=== PATIENT | female | born 1935 | race Caucasian/White ===

== ENCOUNTER 2018-03-08 03:23 | Observation (INO) ==
[2018-03-08 03:40] VITALS: BMI 22.2
--- NOTE | 2018-03-08 04:30 | DR.GENAD ---
HPI Time Seen Time Seen by Provider: 03/08/18 04:14 PCP Primary Care Physician: JOSE L HPI Comment HPI Comment: RESOLVED CURRENTLY. PATIENT HAVING PROBLEM SLEEPING TONIGHT WHEN EPISODE HAPPEN. LUE WAS WEAK, PATIENT HAD TO MOVE THE EXTREMITY WITH HER RUE. NO FEVER, URI SYMPTOM OR DYSUROA. NO TRAUMA. HAVE SLIGHT HEADACHE. Complaint/Symptoms Chief Complaint Doctors Comments: LEFT ARM WEAKNESS TIMES SEVERAL HOURS. Chief Complaint:: "STROKE LIKE SYMPTOMS" Nurses notes reviewed Nurses Notes Review: Yes Source History Provided: Patient and Family Member Mode of Arrival Mode of Arrival: EMS Timing Onset of Chief Complaint: 03/08/18 Came on: Suddenly Duration Duration: Since Onset Duration: Hours Severity Severity: Moderate Modifying Factors Worsens:: NONE. Improves:: NONE. PMH PMH Past Medical History: Yes Past Medical History: Hypertension and Hypothyroidism Past Medical History Comment: VERTIGO, Past Surgical History: No Family History History of Family Medical Conditions: No Social History Does patient currently use any type of tobacco product: No Have you used tobacco products in the last 12 months: No Type of Tobacco Use: None Does any household member use tobacco: No Alcohol Use: None Do you use any recreational Drugs:: No Lives With: Spouse Lives Where: Home infectious screening In the last 2 months have you had wt loss of >10#?: NO Have you had fever, night sweats or hemotysis?: No Have you traveled outside the country in the last 6 months?: No Isolation: Standard ROS Review of Systems Constitutional: negative Chills and Fever Eyes: No Symptoms Reported and Eye Pain ENTM: No Symptoms Reported Respiratoy: No Symptoms Reported Cardiovascular: No Symptoms Reported Gastrointestinal/Abdominal: No Symptoms Reported Genitourinary: No Symptoms Reported Neurological: No Symptoms Reported Musculoskeletal: No Symptoms Reported Integumentary: No Symptoms Reported Hematologic/Lymphatic: No Symptoms Reported Endocrine: No Symptoms Reported Psychiatric: No Symptoms Reported All Other Systems: Reviewed and Negative PE Vital Signs Vitals: Temperature 98.0 F Pulse Rate [Left Radial] 70 Pulse Rate 70 Respiratory Rate 18 Blood Pressure [Right Arm] 143/65 Blood Pressure 188/77 O2 Sat by Pulse Oximetry 96 General Limitations: No Limitations General Appearance: Alert Head Head Exam: Normal Inspection and Atraumatic Eyes Eye exam: Normal Appearance, PERRL and EOMI; negative Scleral Icterus and Conjunctival Injection ENT ENT Exam: Normal Exam, Normal Oropharynx, Normal External Ear Exam, Mucous Membranes Moist and TM's Normal Bilaterally External Ear Exam: Normal External Inspection TM/Canal Exam: Bilateral: Normal Nose Exam: Normal Nose Exam Mouth Exam: Normal Inspection Throat Exam: Normal Inspection Neck Neck Exam: Normal Inspection and Trachea Midline; negative Tenderness, Meningismus and Lymphadenopathy Chest Chest Inspection: Normal Inspection and Symmetric Chest Wall Rise Respiratory Respiratory Exam: Normal Lung Sounds Bilat Respiratory Exam: Bilateral: Clear to Auscultation Cardiovascular Cardiovascular Exam: Regular Rate, Normal Rhythm and Normal Heart Sounds Abdominal Exam Abdominal Exam: Normal Inspection, Normal Bowel Sounds and Soft; negative Tenderness Extremities Extremities Exam: Normal Inspection Back Back Exam: Normal Inspection Neurologic Neurological Exam: Alert, Oriented X3 and CN II-XII Intact; negative Motor Sensory Deficit Psychiatric Psychiatric Exam: Normal Affect and Normal Mood Skin Skin Exam: Intact MDM Additional Information Additional Information Obtained From: Family Differential Diagnosis Differential Diagnosis: LEFT ARM PAIN, INSOMNIA, [place], CVA, TIA COURSE Treatment Treatment: SEE ORDERS. Education/Counseling Education/Counseling: Patient and Family Educated On: Diagnosis ROR Labs Reviewed Result Diagrams: 03/09/18 04:03 03/09/18 04:03 Laboratory: WBC 3.9 X10^3/uL (3.6-10.0) 03/09/18 04:03 RBC 3.50 X10^6/uL (3.5-5.4) 03/09/18 04:03 Hgb 11.1 g/dL (12.0-16.0) L 03/09/18 04:03 Hct 32.0 % (36.0-47.0) L 03/09/18 04:03 MCV 91.3 fL (80.0-100.0) 03/09/18 04:03 MCH 31.8 pg (27.0-34.0) 03/09/18 04:03 MCHC 34.8 g/dL (33.0-35.0) 03/09/18 04:03 RDW 12.6 % (11.6-16.5) 03/09/18 04:03 Plt Count 219 X10^3/uL (150.0-450.0) 03/09/18 04:03 MPV 8.4 fL (7.4-11.0) 03/09/18 04:03 Neut % (Auto) 53.7 % (42.0-75.0) 03/09/18 04:03 Lymph % (Auto) 29.4 % (21.0-51.0) 03/09/18 04:03 [place] % (Auto) 11.0 % (0.0-13.0) 03/09/18 04:03 Eos % (Auto) 3.7 % (0.9-2.9) H 03/09/18 04:03 Baso % (Auto) 2.2 % (0.2-1.0) H 03/09/18 04:03 Neut # (Auto) 2.1 x10^3/uL (2.2-4.8) L 03/09/18 04:03 Lymph # (Auto) 1.1 X10^3/uL (1.3-2.9) L 03/09/18 04:03 [place] # (Auto) 0.4 x10^3/uL (0.3-0.8) 03/09/18 04:03 Eos # (Auto) 0.1 x10^3/uL (0.0-0.2) 03/09/18 04:03 Baso # (Auto) 0.1 X10^3/uL (0.0-0.1) 03/09/18 04:03 Absolute Nucleated RBC 0.0 /100WBC 03/09/18 04:03 Sodium 142 mmol/L (136-145) 03/09/18 04:03 Corrected Sodium TNP 03/09/18 04:03 Potassium 3.7 mmol/L (3.5-5.1) 03/09/18 04:03 Chloride 109 mmol/L (98-107) H 03/09/18 04:03 Carbon Dioxide 23.2 mmol/L (21-32) 03/09/18 04:03 BUN 16 mg/dL (7-18) 03/09/18 04:03 Creatinine 0.87 mg/dL (0.55-1.02) 03/09/18 04:03 Est GFR (MDRD) Af Amer > 60 (>60) 03/09/18 04:03 Est GFR (MDRD) Non-Af > 60 (>60) 03/09/18 04:03 Glucose 85 mg/dL (65-99) 03/09/18 04:03 Calcium 8.3 mg/dL (8.5-10.1) L 03/09/18 04:03 Corrected Calcium 9.3 mg/dL (8.5-10.1) 03/09/18 04:03 Magnesium 2.1 mg/dL (1.7-2.9) 03/09/18 04:03 Total Bilirubin 0.20 mg/dL (0.2-1.0) 03/09/18 04:03 AST 16 Units/L (15-37) 03/09/18 04:03 ALT 14 Units/L (12-78) 03/09/18 04:03 Alkaline Phosphatase 70 Units/L (46-116) 03/09/18 04:03 Creatine Kinase 38 Units/L (26-192) 03/08/18 20:47 CK-MB (CK-2) < 1.0 ng/mL (0-4.0) 03/08/18 20:47 CK/CKMB % Calc 2.6 % (<4) 03/08/18 20:47 Troponin I 0.02 ng/mL (0-1.5) 03/08/18 20:47 Total Protein 6.8 g/dL (6.4-8.2) 03/09/18 04:03 Albumin 2.7 g/dL (3.4-5.0) L 03/09/18 04:03 Globulin 4.1 g/dL (2.5-4.5) 03/09/18 04:03 Albumin/Globulin Ratio 0.7 Ratio (1.1-2.1) L 03/09/18 04:03 Triglycerides 125 mg/dL (0-150) 03/08/18 08:00 Cholesterol 204 mg/dL (0-200) H 03/08/18 08:00 LDL Cholesterol, Calc 132 mg/dL (0-100) H 03/08/18 08:00 HDL Cholesterol 47 mg/dL (40-60) 03/08/18 08:00 Cholesterol/HDL Ratio 4.3 (0.0-5.0) 03/08/18 08:00 Specimen Type Clean catch urine 03/08/18 04:42 Urine Color Yellow (YELLOW) 03/08/18 04:42 Urine Appearance Clear (CLEAR) 03/08/18 04:42 Urine pH 6.0 (5.0 - 8.0) 03/08/18 04:42 Ur Specific [place] 1.015 (1.000-1.030) 03/08/18 04:42 Urine Protein 1+ (NEGATIVE) 03/08/18 04:42 Urine Glucose (UA) Negative (NEGATIVE) 03/08/18 04:42 Urine Ketones Negative (NEGATIVE) 03/08/18 04:42 Urine Occult Blood 2+ (NEGATIVE) 03/08/18 04:42 Urine Nitrite Negative (NEGATIVE) 03/08/18 04:42 Urine Bilirubin Negative (NEGATIVE) 03/08/18 04:42 Urine Urobilinogen Normal (NORMAL) 03/08/18 04:42 Ur Leukocyte Esterase Negative (NEGATIVE) 03/08/18 04:42 Urine RBC 0-2 /HPF (NONE SEEN) 03/08/18 04:42 Urine WBC None seen /HPF (NONE SEEN) 03/08/18 04:42 Ur Squamous Epith Cells Rare /HPF (NEGATIVE) 03/08/18 04:42 Urine Bacteria Negative /HPF (NEGATIVE) 03/08/18 04:42 Ur Culture Indicated? No/not indicated 03/08/18 04:42 XRAY XRAY Interpreted by: Radiologist XRAY Findings: REPORT DISCUSS WITH PATIENT. EKG [place]: Normal Rhythm: NSR Diagnosis Discharge Problem: Abnormal cardiac enzyme level Chest pain Qualifiers: Chest pain type: other chest pain Qualified Code(s): R07.89 - Other chest pain Instructions Instructions: Nonspecific Chest Pain, [place] Hypertension, Ovka-[id number]-[id number] Forms: Patient Portal
[2018-03-08 04:42] LABS: BASOPHILS % (AUTO) 1.1 % (0.2-1.0); EOSINOPHILS # (AUTO) 0.1 x10^3/uL (0.0-0.2); EOSINOPHILS % (AUTO) 2.1 % (0.9-2.9); HEMATOCRIT 34.9 % (36.0-47.0); HEMOGLOBIN 12.2 g/dL (12.0-16.0); LYMPHOCYTES # (AUTO) 0.8 X10^3/uL (1.3-2.9); LYMPHOCYTES % (AUTO) 21.2 % (21.0-51.0); MEAN CORPUSCULAR HEMOGLOBIN 31.9 pg (27.0-34.0); MEAN CORPUSCULAR HGB CONC 34.8 g/dL (33.0-35.0); MEAN CORPUSCULAR VOLUME 91.6 fL (80.0-100.0); MEAN PLATELET VOLUME 7.9 fL (7.4-11.0); MONOCYTES # (AUTO) 0.6 x10^3/uL (0.3-0.8); MONOCYTES % (AUTO) 14.8 % (0.0-13.0); NEUTROPHILS # (AUTO) 2.3 x10^3/uL (2.2-4.8); NEUTROPHILS % (AUTO) 60.8 % (42.0-75.0); PLATELET COUNT 218 X10^3/uL (150.0-450.0); RED BLOOD COUNT 3.81 X10^6/uL (3.5-5.4); RED CELL DISTRIBUTION WIDTH 12.6 % (11.6-16.5); WHITE BLOOD COUNT 3.8 X10^3/uL (3.6-10.0)
[2018-03-08 04:55] LABS: BLOOD UREA NITROGEN 11 mg/dL (7-18); CALCIUM 8.7 mg/dL (8.5-10.1); CHLORIDE 107 mmol/L (98-107); CREATININE 0.91 mg/dL (0.55-1.02); SODIUM 144 mmol/L (136-145); TROPONIN I 0.03 ng/mL (0-1.5); eGFR NON BLACK RACES > 60 (>60)
[2018-03-08 04:59] LABS: BILIRUBIN,URINE NEGATIVE (NEGATIVE); BLOOD/HEMOGLOBIN,URINE 2+ (NEGATIVE); GLUCOSE, URINE NEGATIVE (NEGATIVE); KETONES,URINE NEGATIVE (NEGATIVE); LEUKOCYTE ESTERASE ,URINE NEGATIVE (NEGATIVE); NITRITES,URINE NEGATIVE (NEGATIVE); PROTEIN,URINE 1+ (NEGATIVE); UROBILINOGEN,URINE NORMAL (NORMAL)
[2018-03-08 04:59] LABS: ALANINE AMINOTRANSFERASE 16 Units/L (12-78); ALBUMIN 3.1 g/dL (3.4-5.0); ALKALINE PHOSPHATASE 78 Units/L (46-116); ASPARTATE AMINO TRANSFERASE 16 Units/L (15-37); CKMB % 2.5 % (<4); COR CA(FOR HYPOALB) 9.4 mg/dL (8.5-10.1); CREATINE KINASE 40 Units/L (26-192); CREATINE KINASE MB < 1.0 ng/mL (0-4.0); TOTAL PROTEIN 7.6 g/dL (6.4-8.2)
[2018-03-08 05:05] LABS: APPEARANCE,URINE CLEAR (CLEAR); COLOR,URINE YELLOW (YELLOW)
[2018-03-08 05:06] LABS: BACTERIA,URINE NEGATIVE /HPF (NEGATIVE); RBC,URINE 0-2 /HPF (NONE SEEN); SQUAMOUS EPITHELIAL CELL,UR RARE /HPF (NEGATIVE)
--- NOTE | 2018-03-08 05:43 | CT ---
CT brain without contrast Indication: Left arm weakness Comparison: None available Technique: Multiple axial images of the brain were obtained from the skull base to the vertex without administra tion of IV contrast. Findings: Indeterminate hypoattenuation within the subcortical white matter of the right frontal lobe on axial image 19. Mild generalized cerebral atrophy. Mild bilateral periventricular hypoattenuation is also n oted. Small calcifications are noted within the right basal ganglia. No acute intraparenchymal hemorrhage or mass can be identified. No extra-axial fluid collections are seen. No alteration in the attenuation of the brain parenchyma can be identified to suggest acute o r subacute ischemic change. The ventricular system is symmetric and nondilated. The extracranial st ructures are grossly unremarkable. IMPRESSION: 1. No acute intracranial hemorrhage. 2. Mild bilateral periventricular hypoattenuation along with subcortical hypoattenuation within the r ight frontal lobe is indeterminate, this likely represents sequela of chronic microvascular ischemic disease however if there are persistent acute neurological deficits consider correlation with brain M RI for further evaluation. Reported By:
--- NOTE | 2018-03-08 05:47 | RAD ---
History: Left arm weakness lasting 15 minutes study: AP chest Comparison: None Findings: The lungs clear and the heart and mediastinum are unremarkable. No significant bony abnorma lity is suggested. Impression: No evidence for active cardiopulmonary disease Reported By:
[2018-03-08 07:19] LABS: CKMB % 2.5 % (<4); CREATINE KINASE 40 Units/L (26-192); CREATINE KINASE MB < 1.0 ng/mL (0-4.0); TROPONIN I 0.04 ng/mL (0-1.5)
[2018-03-08] MEDS ORDERED: COZAAR PO ONE ×2 (08:10→09:00)
[2018-03-08] MEDS ORDERED: XANAX PO PRN (08:45)
[2018-03-08 08:54] LABS: CHOL/HDL RATIO 4.3 (0.0-5.0)
[2018-03-08] MEDS ORDERED: COZAAR PO SCH (09:00)
[2018-03-08] MEDS ORDERED: OMNICEF CAP 300 MG PO SCH (09:00)
[2018-03-08] MEDS: ASPIRIN PO SCH (09:24)
[2018-03-08] MEDS: NS 1000 ML 1,000 ML IV SCH (09:24)
[2018-03-08] MEDS: SYNTHROID 75 mcg TAB PO SCH (09:25)
[2018-03-08 09:44] LABS: CKMB % 2.3 % (<4); CREATINE KINASE 43 Units/L (26-192); CREATINE KINASE MB < 1.0 ng/mL (0-4.0); TROPONIN I 0.04 ng/mL (0-1.5)
--- NOTE | 2018-03-08 11:03 | DR.H&P ---
H&P - History & Physical for Day of: H&P Date: 03/08/18 - Chief Complaint Chief Complaint: CHEST PAIN, LEFT ARM WEAKNESS - History of Present Illness History of Present Illness: IS A 82 YEAR OLD PATIENT OF OURS WHO PRESENTED TO THE EMERGENCY ROOM VIA EMS WITH COMPLANTS OF LEFT ARM WEAKNESS AND LEFT SIDED CHEST PAIN THAT STARTED APPROXIMATELY FOUR HOURS PRIOR TO ARRIVAL. PATIENT REPORTS THAT LEFT ARM WAS HEAVY AND SHE WAS HAVING A DIFFICULT TIME HOLDING IT UP. PAST MEDICAL HISTORY INCLUDES HYPERTENSION, HYPOTHYROIDISM, VERTIGO, AND ANXIETY. ON ARRIVAL, VITALS WERE 97.4-70-20-100%-188/77. LABS WERE OBTAINED. ABNORMAL LAB VALUES INCLUDE THE FOLLOWING: HCT 34.9, ALBUMIN 3.1, CHOLESTEROL 204, LDL 204. CARDIAC ENZYMES WERE WITHIN NORMAL LIMITS. URINALYSIS WAS UNREMARKABLE. AN EKG WAS OBTAINED AND REVEALED SINUS RHYTHM WITH HR 67. BRAIN CT REVEALED: No acute intracranial hemorrhage. Mild bilateral periventricular hypoattenuation along with subcortical hypoattenuation within the right frontal lobe is indeterminate, this likely represents sequela of chronic microvascular ischemic disease however if there are persistent acute neurological deficits consider correlation with brain MRI for further evaluation. CHEST XRAY REVEALED: No evidence for active cardiopulmonary disease. WE ADMITTED PATIENT TO THE HOSPITAL FOR FURTHER EVALUATION AND TREATMENT OF CHEST PAIN, RULE OUT ACUTE ME. TODAY, WE WILL START METOPROLOL 25MG PO DAILY WELL RESUME HER HOME MEDICATIONS. OTHERWISE, WE PLAN TO FOLLOW UP WITH AM LABS AND CONTINUE TO MONITOR PATIENT. - Past Medical History Past Medical History: Hypertension, Hypothyroidism - Past Surgical History Surgical History: Hysterectomy - Family History Family Medical History: Diabetes Mellitus, Cancer, [place], Coronary Artery Disease, Sudden Cardiac , Hypertension - Social History Does patient currently use any type of tobacco product: No Have you used tobacco products in the last 12 months: No Type of Tobacco Use: None Does any household member use tobacco: No Alcohol Use: None Drug Use: None - Medications Home Medications: meclizine Allergy (Verified 03/08/18 03:40) CONTINUE taking the following medications alprazolam 0.25 mg PO PRN PRN 03/08/18 [History] cefdinir 300 mg PO BID 03/08/18 [History] levothyroxine 75 mcg PO DAILY 03/08/18 [History] losartan 25 mg PO DAILY 03/08/18 [History] - Review of Systems Constitutional: Weakness Eyes: No Symptoms Reported ENT: No Symptoms Reported Respiratory: Shortness of Breath Cardiovascular: Chest Pain Gastrointestinal: No Symptoms Reported Genitourinary: No Symptoms Reported Musculoskeletal: No Symptoms Reported Skin: No Symptoms Reported Neurological: Weakness (LEFT ARM WEAKNESS ) - Physical Exam Vital Signs: Temperature 97.4 F Pulse Rate [Left Radial] 72 Pulse Rate 70 Respiratory Rate 17 Blood Pressure [Right Arm] 191/81 Blood Pressure 188/77 O2 Sat by Pulse Oximetry 97 Oriented: Normal Eyes: Normal Ear: Normal Nose: Normal Throat: Normal Respiratory: Diminished Throughout Cardiovascular: Normal. negative: S3, S4, Murmur : Normal Auscultation: Bowel Sounds: Normal Palpation: Normal Tenderness: Normal Skin: Normal Musculoskeletal: Normal Psychiatric: Anxiety Mood Description: Anxious Affect: Anxious Speech Pattern: Clear - Assessment/Plan (1) Chest pain, rule out acute myocardial infarction Status: Acute Plan: ADMIT, SERIAL CARDIAC ENZYMES AND EKG, TELEMETRY, CONTINUE TO MONITOR (2) Hypertension Qualifiers: Hypertension type: essential hypertension Qualified Code(s): I10 - Essential (primary) hypertension Status: Chronic Plan: METOPROLOL 25MG PO DAILY, RESUME HOME MEDICATIONS, CONTINUE TO MONITOR - Allergies Allergies/Adverse Reactions: Allergies Allergy/AdvReac Type Severity Reaction Status Date / Time meclizine Allergy Verified 03/08/18 03:40
[2018-03-08] MEDS: TOPROL XL PO SCH (11:16)
[2018-03-08 15:47] LABS: CKMB % 2.3 % (<4); CREATINE KINASE 43 Units/L (26-192); CREATINE KINASE MB < 1.0 ng/mL (0-4.0); TROPONIN I 0.03 ng/mL (0-1.5)
[2018-03-08] MEDS ORDERED: RESTORIL CAP 15 MG PO PRN (17:49)
[2018-03-08 21:36] LABS: CKMB % 2.6 % (<4); CREATINE KINASE 38 Units/L (26-192); CREATINE KINASE MB < 1.0 ng/mL (0-4.0); TROPONIN I 0.02 ng/mL (0-1.5)
[2018-03-09] MEDS: NS 1000 ML 1,000 ML IV SCH ×3 (01:41→10:22)
[2018-03-09 05:19] LABS: BASOPHILS # (AUTO) 0.1 X10^3/uL (0.0-0.1); BASOPHILS % (AUTO) 2.2 % (0.2-1.0); EOSINOPHILS # (AUTO) 0.1 x10^3/uL (0.0-0.2); EOSINOPHILS % (AUTO) 3.7 % (0.9-2.9); HEMOGLOBIN 11.1 g/dL (12.0-16.0); LYMPHOCYTES # (AUTO) 1.1 X10^3/uL (1.3-2.9); LYMPHOCYTES % (AUTO) 29.4 % (21.0-51.0); MEAN CORPUSCULAR HEMOGLOBIN 31.8 pg (27.0-34.0); MEAN CORPUSCULAR HGB CONC 34.8 g/dL (33.0-35.0); MEAN CORPUSCULAR VOLUME 91.3 fL (80.0-100.0); MEAN PLATELET VOLUME 8.4 fL (7.4-11.0); MONOCYTES # (AUTO) 0.4 x10^3/uL (0.3-0.8); NEUTROPHILS # (AUTO) 2.1 x10^3/uL (2.2-4.8); NEUTROPHILS % (AUTO) 53.7 % (42.0-75.0); PLATELET COUNT 219 X10^3/uL (150.0-450.0); RED CELL DISTRIBUTION WIDTH 12.6 % (11.6-16.5); WHITE BLOOD COUNT 3.9 X10^3/uL (3.6-10.0)
[2018-03-09 05:26] LABS: ALANINE AMINOTRANSFERASE 14 Units/L (12-78); ALBUMIN 2.7 g/dL (3.4-5.0); ALKALINE PHOSPHATASE 70 Units/L (46-116); ASPARTATE AMINO TRANSFERASE 16 Units/L (15-37); BLOOD UREA NITROGEN 16 mg/dL (7-18); CALCIUM 8.3 mg/dL (8.5-10.1); CARBON DIOXIDE 23.2 mmol/L (21-32); CHLORIDE 109 mmol/L (98-107); COR CA(FOR HYPOALB) 9.3 mg/dL (8.5-10.1); CREATININE 0.87 mg/dL (0.55-1.02); MAGNESIUM 2.1 mg/dL (1.7-2.9); SODIUM 142 mmol/L (136-145); TOTAL PROTEIN 6.8 g/dL (6.4-8.2); eGFR NON BLACK RACES > 60 (>60)
[2018-03-09] MEDS ORDERED: COZAAR PO SCH (09:00)
[2018-03-09] MEDS: SYNTHROID 75 mcg TAB PO SCH (09:29)
[2018-03-09] MEDS: TOPROL XL PO SCH (09:29)
[2018-03-09] MEDS: ASPIRIN PO SCH (09:29)
[2018-03-09 09:54] VITALS: BP 143/65
--- NOTE | 2018-04-26 22:43 | DR.CARTERD ---
- Discharge Summary for: Discharge Summary for Date of:: 03/09/18 - Admission Date Date of Admission: 03/08/18 - Admission Diagnoses Admission Diagnosis: (1) Chest pain, rule out acute myocardial infarction (2) Hypertension - Discharge Date Discharge Date: 03/09/18 - Discharge Diagnoses Discharge Diagnosis: (1) Chest pain, rule out acute myocardial infarction (2) Hypertension - Hospital Course Hospital Course: DAY ONE, IS A 82 YEAR OLD PATIENT OF OURS WHO PRESENTED TO THE EMERGENCY ROOM VIA EMS WITH COMPLANTS OF LEFT ARM WEAKNESS AND LEFT SIDED CHEST PAIN THAT STARTED APPROXIMATELY FOUR HOURS PRIOR TO ARRIVAL. PATIENT REPORTED THAT LEFT ARM WAS HEAVY AND SHE WAS HAVING A DIFFICULT TIME HOLDING IT UP. PAST MEDICAL HISTORY INCLUDES HYPERTENSION, HYPOTHYROIDISM, VERTIGO, AND ANXIETY. ON ARRIVAL, VITALS WERE 97.4-70-20-100%-188/77. LABS WERE OBTAINED. ABNORMAL LAB VALUES INCLUDE THE FOLLOWING: HCT 34.9, ALBUMIN 3.1, CHOLESTEROL 204, LDL 204. CARDIAC ENZYMES WERE WITHIN NORMAL LIMITS. URINALYSIS WAS UNREMARKABLE. AN EKG WAS OBTAINED AND REVEALED SINUS RHYTHM WITH HR 67. BRAIN CT REVEALED: No acute intracranial hemorrhage. Mild bilateral periventricular hypoattenuation along with subcortical hypoattenuation within the right frontal lobe is indeterminate, this likely represents sequela of chronic microvascular ischemic disease however if there are persistent acute neurological deficits consider correlation with brain MRI for further evaluation. CHEST XRAY REVEALED: No evidence for active cardiopulmonary disease. WE ADMITTED PATIENT TO THE HOSPITAL FOR FURTHER EVALUATION AND TREATMENT OF CHEST PAIN, RULE OUT ACUTE [place]. WE STARTED METOPROLOL 25MG PO DAILY WELL RESUME HER HOME MEDICATIONS. WE FOLLOWED UP WITH AM LABS AND CONTINUED TO MONITOR PATIENT. DAY TWO, SERIAL CARDIAC ENZYMES WERE NORMAL. LABS WERE WITHIN NORMAL LIMITS AND VITAL SIGNS WERE STABLE. NO CHEST PAIN OR LEFT ARM PAIN NOTED DURING MORNING ROUNDS. ZERO SIGNS AND SYMPTOMS OF ACUTE DISTRESS WERE NOTED DURING MORNING ROUNDS. WE PLANNED FOR DISCHARGE. INSTRUCTIONS FOR MEDICATIONS AND FOLLOW UP WERE DISCUSSED WITH PATIENT AND FAMILY, BOTH VOICED UNDERSTANDING. PATIENT WAS DISCHARGED HOME IN STABLE CONDITION WITH FAMILY. - Discharge Medications Discharge Medications: Home Medication List alprazolam 0.25 mg PO PRN PRN 03/08/18 [History] cefdinir 300 mg PO BID 03/08/18 [History] levothyroxine 75 mcg PO DAILY 03/08/18 [History] losartan 25 mg PO DAILY 03/08/18 [History] aspirin [Ecotrin Low Strength] 81 mg PO DAILY #30 tab 03/09/18 [Rx] rosuvastatin 5 mg PO HS #30 tab 03/09/18 [Rx] Prescriptions: aspirin [Ecotrin Low Strength] Yan Ortega rosuvastatin Yan Ortega - Discharge Disposition Discharge Disposition: PATIENT TO FOLLOW UP IN OUR OFFICE IN ONE WEEK.
== END 2018-03-09 11:25 | disposition home or self-care (01) ==
LOC: ER 03:25 → OBS 03:25 → MED/SURG 08:11 → UNDODISOB 03-09 10:20
PROVIDERS: ADMIT Internal Medicine; ATTEND Internal Medicine
DX: R42 Dizziness and giddiness; E03.8 Other specified hypothyroidism; R94.30 Abnormal result of cardiovascular function study, unspecified; F41.8 Other specified anxiety disorders; Z79.899 Other long term (current) drug therapy; R74.8 Abnormal levels of other serum enzymes; M62.81 Muscle weakness (generalized); I10 Essential (primary) hypertension; R06.02 Shortness of breath; R07.89 Other chest pain
CPT/HCPCS: 36415; 70450; 71010; 71045; 80053; 80061; 81001; 82550; 82553; 83735; 84484; 85025; 93005; 93010; 96365; 99284; A4222; G0378; J7030